=== PATIENT | female | born 1960 | race Caucasian/White ===

== ENCOUNTER 2018-08-26 09:32 | Emergency (ER) | payer OTHER ==
[~2018-08-26] VITALS: Ht 170.2 cm; Wt 65.8 kg
[2018-08-26] MEDS ORDERED: ACETAMINOPHEN 325 MG TAB PO ONE (10:00)
--- NOTE | 2018-08-26 10:40 | Diagnostic Imaging Report ---
FOOT 3 VIEW LEFT- HOPD - 4 views HISTORY: Pain COMPARISON: None available. FINDINGS: Generalized demineralization. Comminuted fracture of the distal phalanx of the great toe without significant displacement or intra-articular extension. Small calcaneal enthesophytes. Mild degenerative changes of the tarsometatarsal joints. IMPRESSION: Comminuted fracture of the distal phalanx of the great toe without significant displacement or intra-articular extension. Signed by: Dr. Alverto Bingham MD on 08/26/2018 10:36 AM
--- NOTE | 2018-08-26 10:46 | NUR ---
DR SHAFFER AT BEDSIDE FOR LACERATION REPAIR. NO SIGNS OF ACUTE DISTRESS NOTED AT THIS TIME.
--- NOTE | 2018-08-26 11:30 | NUR ---
10 SUTURES PLACED TO LEFT FOOT GREAT TOE,TOLERATED WELL, CEAL DRESSING APPLIED, DRY AND INTACT. NO SIGNS OF ACUTE DISTRESS NOTED AT THIS TIME.
--- NOTE | 2018-08-26 11:40 | NUR ---
POST OP SHOE APPLIED TO LEFT FOOT, TOELRATED WELL. NO SIGNS OF ACUTE DISTRESS NOTED AT THIS TIME.
[2018-08-26 11:51] VITALS: BP 139/82
== END 2018-08-26 11:54 | disposition home or self-care (01) ==
LOC: FSED 09:32
DX: S92.424B Nondisplaced fracture of distal phalanx of right great toe, initial encounter for open fracture (principal); W20.8XXA Other cause of strike by thrown, projected or falling object, initial encounter; Y99.0 Civilian activity done for income or pay
CPT/HCPCS: 99283